=== PATIENT | female | born 1975 | race African-American/Black ===

== ENCOUNTER 2018-11-24 13:40 | Emergency (ER) | payer SELFPAY ==
[~2018-11-24] VITALS: Ht 185.4 cm; Wt 158.8 kg
[2018-11-24 13:51] VITALS: BP 164/97
--- NOTE | 2018-11-24 14:55 | PHYS DOC ---
Past Medical History Past Medical History: Migraines Past Surgical History: Other Additional Past Surgical Histo: throat Alcohol Use: None Drug Use: None Adult General Chief Complaint Chief Complaint: EARACHE/EAR PAIN [facility] HPI Patient is a 43 year old bilateral ear pain that began 2 days ago. Patient denies any fever coughing or congestion. Review of Systems Review of Systems Constitutional: Denies fever or chills [] Eyes: Denies change in visual acuity, redness, or eye pain [] HENT: Reports bilateral ear pain for 2 days. Denies nasal congestion or sore throat [] Respiratory: Denies cough or shortness of breath [] Cardiovascular: No additional information not addressed in HPI [] GI: Denies abdominal pain, nausea, vomiting, bloody stools or diarrhea [] : Denies dysuria or hematuria [] Musculoskeletal: Denies back pain or joint pain [] Integument: Denies rash or skin lesions [] Neurologic: Denies headache, focal weakness or sensory changes [] All other systems were reviewed and found to be within normal limits, except as documented in this note. Allergies Allergies Allergies Coded Allergies Type Severity Reaction Last Updated Verified hydrocodone Allergy Unknown headache 07/10/14 No Physical Exam Physical Exam Constitutional: Well developed, well nourished, no acute distress, non-toxic appearance. [] HENT: Normocephalic, atraumatic, bilateral external ears normal, oropharynx moist, no oral exudates, nose normal. [] Bilateral TM are mildly injected left worse than right with cloudy fluid on the left. Eyes: PERRLA, EOMI, conjunctiva normal, no discharge. [] Neck: Normal range of motion, no tenderness, supple, no stridor. [] Cardiovascular:Heart rate regular rhythm, no murmur [] Lungs & Thorax: Bilateral breath sounds clear to auscultation [] Abdomen: Bowel sounds normal, soft, no tenderness, no masses, no pulsatile masses. [] Skin: Warm, dry, no erythema, no rash. [] Back: No tenderness, no CVA tenderness. [] Extremities: No tenderness, no cyanosis, no clubbing, ROM intact, no edema. [] Neurologic: Alert and oriented X 3, normal motor function, normal sensory function, no focal deficits noted. [] Psychologic: Affect normal, judgement normal, mood normal. [] Current Patient Data Vital Signs Vital Signs Date Time Temp Pulse Resp B/P (MAP) Pulse Ox O2 Delivery O2 Flow Rate FiO2 11/24/18 13:51 98.8 84 16 164/97 (119) 95 Room Air 98.8 EKG EKG [] Radiology/Procedures Radiology/Procedures [] Course & Med Decision Making Course & Med Decision Making Pertinent Labs and Imaging studies reviewed. (See chart for details) Patient has bilateral otitis media. Discharged on amoxicillin. Tylenol Motrin for pain or fever. Follow-up with PCP in 1-2 weeks or ENT. Dragon Disclaimer Dragon Disclaimer This electronic medical record was generated, in whole or in part, using a voice recognition dictation system. Departure Departure Impression: Primary Impression: Otitis media Disposition: HOME, SELF-CARE Condition: STABLE Referrals: NO PCP (PCP) follow up with your doctor in 1-2 weeks Patient Instructions: Otitis Media, Adult, [id number] Additional Instructions: You have ear infection, you were treated with antibiotics, follow up with your primary care doctor in 1-2 weeks. Scripts Amoxicillin (AMOXICILLIN) 875 Mg Tablet 1 TAB PO BID, #20 TAB Prov: CLAUDIA MCCULLOUGH [employer] 11/24/18 Problem Qualifiers Primary Impression: Otitis media Otitis media type: other nonsuppurative Chronicity: acute Laterality: bilateral Recurrence: non-recurrent Qualified Codes: H65.193 - Other acute nonsuppurative otitis media, bilateral CLAUDIA MCCULLOUGH [employer] UND[employer]WRITER November 24, 2018 14:55
[2018-11-24] MEDS ORDERED: AMOX875T PO (15:12)
== END 2018-11-24 15:46 | disposition home or self-care (01) ==
LOC: ER 13:40
DX: H65.193 Other acute nonsuppurative otitis media, bilateral (principal); G43.909 Migraine, unspecified, not intractable, without status migrainosus; Z88.5 Allergy status to narcotic agent
CPT/HCPCS: 99283

== ENCOUNTER 2019-01-13 12:06 | Emergency (ER) | payer OTHER ==
[~2019-01-13] VITALS: Ht 185.4 cm; Wt 159.7 kg
[~2019-01-13 12:06] MED LIST: AMOX875T PO
[2019-01-13 12:32] VITALS: BP 179/97
[2019-01-13] MEDS ORDERED: KETOROLAC 60 MG/2 ML VIAL. IM ONE (12:45)
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
[2019-01-13] MEDS ORDERED: ACET-704 PO (14:11)
== END 2019-01-13 14:31 | disposition home or self-care (01) ==
LOC: ER 12:06
DX: S09.90XA Unspecified injury of head, initial encounter (principal); G43.909 Migraine, unspecified, not intractable, without status migrainosus; M47.812 Spondylosis without myelopathy or radiculopathy, cervical region; Z88.5 Allergy status to narcotic agent; W22.8XXA Striking against or struck by other objects, initial encounter; Y93.89 Activity, other specified; Y92.89 Other specified places as the place of occurrence of the external cause; Y99.0 Civilian activity done for income or pay
CPT/HCPCS: 70450; 72125; 96372; 99284; J1885

== ENCOUNTER 2019-06-10 03:59 | Emergency (ER) | payer SELFPAY ==
[~2019-06-10] VITALS: Ht 185.4 cm; Wt 165.6 kg
[~2019-06-10 03:59] MED LIST changes: +ACET-704 PO
[2019-06-10] MEDS ORDERED: ONDANSETRON PF 4 MG/2 ML VIAL. IVP ONE (04:30)
[2019-06-10] MEDS ORDERED: IV NORMAL SALINE 1000ML BAG 1,000 ML IV ONE (04:30)
[2019-06-10] MEDS ORDERED: ONDANSETRON PF 4 MG/2 ML VIAL. ONE (04:40)
[2019-06-10 04:48] LABS: BASO % 1 % (0-3); EOS # 0.1 x10^3/uL (0.0-0.7); EOS % 3 % (0-3); HEMATOCRIT 40.4 % (36.0-47.0); HEMOGLOBIN 13.9 g/dL (12.0-15.5); LYMPH # 1.4 x10^3/uL (1.0-4.8); LYMPH % 52 % (24-48); MEAN CORPUSCULAR HEMOGLOBIN 30 pg (25-35); MEAN CORPUSCULAR HGB CONC 34 g/dL (31-37); MEAN CORPUSCULAR VOLUME 87 fL (79-100); MONO # 0.2 x10^3/uL (0.0-1.1); MONO % 9 % (0-9); NEUT % 35 % (31-73); PLATELET COUNT 223 x10^3/uL (140-400); RED BLOOD COUNT 4.66 x10^6/uL (3.50-5.40); WHITE BLOOD COUNT 2.8 x10^3/uL (4.0-11.0)
--- NOTE | 2019-06-10 04:55 | PHYS DOC ---
Past Medical History Past Medical History: Migraines Past Surgical History: Other Additional Past Surgical Histo: throat Alcohol Use: None Drug Use: None Adult General Chief Complaint Chief Complaint: ABDOMINAL PAIN HPI HPI Patient is a 43 year old -[place] female presents acute onset diffuse abdominal pain with nausea while episode of emesis. Pain is rated moderate to severe and described as sharp pain is migratory. Symptoms began several hours prior to ED arrival after eating. No fevers chills, sweats. No diarrhea. No prior abdominal surgeries. Last menstrual period over a year ago. No other acute symptoms or complaints. [] Review of Systems Review of Systems Review symptoms as per history of present illness. All other review symptoms are negative. All other systems were reviewed and found to be within normal limits, except as documented in this note. Current Medications Current Medications Current Medications Medications (Trade) Dose Ordered Sig/Norah Start Time Stop Time Status Last Admin Dose Admin Info (CONTRAST GIVEN -- Rx MONITORING) 1 each PRN DAILY PRN 06/10/19 05:15 06/12/19 05:14 Iohexol (Omnipaque 300 Mg/ml) 75 ml 1X ONCE 06/10/19 05:15 06/10/19 05:16 DC 06/10/19 05:19 75 ML Morphine Sulfate (Morphine Sulfate) 4 mg 1X ONCE 06/10/19 05:00 06/10/19 05:01 DC 06/10/19 04:58 4 MG Ondansetron HCl (Zofran) 4 mg STK-MED ONCE 06/10/19 04:40 06/10/19 04:41 DC Sodium Chloride 1,000 ml @ 1,000 mls/hr 1X ONCE 06/10/19 04:30 06/10/19 05:29 DC 06/10/19 04:42 1,000 MLS/HR Allergies Allergies Allergies Coded Allergies Type Severity Reaction Last Updated Verified No Known Drug Allergies 06/10/19 No Physical Exam Physical Exam Constitutional: Moderate distress secondary pain. [] HENT: Normocephalic, atraumatic, bilateral external ears normal, oropharynx moist, nose normal. [] Eyes: PERRLA, EOMI, conjunctiva normal, no discharge. [] Neck: Normal range of motion, no tenderness, supple, no stridor. [] Cardiovascular:Heart rate regular rhythm, no murmur [] Lungs & Thorax: Bilateral breath sounds clear to auscultation [] Abdomen: Bowel sounds normal, soft, increased bowel sounds, periumbilical pain/tenderness, voluntary guarding.. [] Skin: Warm, dry, no erythema, no rash. [] Back: No tenderness, no CVA tenderness. [] Extremities: No tenderness, no edema. [] Neurologic: Alert and oriented X 3, normal motor function, normal sensory function, no focal deficits noted. [] Psychologic: Affect normal, judgement normal, mood normal. [] Current Patient Data Vital Signs Vital Signs Date Time Temp Pulse Resp B/P (MAP) Pulse Ox O2 Delivery O2 Flow Rate FiO2 06/10/19 05:29 16 94 Room Air 06/10/19 04:15 98.3 78 140/79 (99) 98.3 Lab Values Laboratory Tests Test 06/10/19 04:40 White Blood Count 2.8 x10^3/uL (4.0-11.0) L Red Blood Count 4.66 x10^6/uL (3.50-5.40) Hemoglobin 13.9 g/dL (12.0-15.5) Hematocrit 40.4 % (36.0-47.0) Mean Corpuscular Volume 87 fL (79-100) Mean Corpuscular Hemoglobin 30 pg (25-35) Mean Corpuscular Hemoglobin Concent 34 g/dL (31-37) Red Cell Distribution Width 14.0 % (11.5-14.5) Platelet Count 223 x10^3/uL (140-400) Neutrophils (%) (Auto) 35 % (31-73) Lymphocytes (%) (Auto) 52 % (24-48) H Monocytes (%) (Auto) 9 % (0-9) Eosinophils (%) (Auto) 3 % (0-3) Basophils (%) (Auto) 1 % (0-3) Neutrophils # (Auto) 1.0 x10^3/uL (1.8-7.7) L Lymphocytes # (Auto) 1.4 x10^3/uL (1.0-4.8) Monocytes # (Auto) 0.2 x10^3/uL (0.0-1.1) Eosinophils # (Auto) 0.1 x10^3/uL (0.0-0.7) Basophils # (Auto) 0.0 x10^3/uL (0.0-0.2) Sodium Level 140 mmol/L (136-145) Potassium Level 3.6 mmol/L (3.5-5.1) Chloride Level 104 mmol/L (98-107) Carbon Dioxide Level 27 mmol/L (21-32) Anion Gap 9 (6-14) Blood Urea Nitrogen 11 mg/dL (7-20) Creatinine 0.9 mg/dL (0.6-1.0) Estimated GFR (Cockcroft-Gault) 82.3 BUN/Creatinine Ratio 12 (6-20) Glucose Level 118 mg/dL (70-99) H Calcium Level 8.8 mg/dL (8.5-10.1) Total Bilirubin 0.3 mg/dL (0.2-1.0) Aspartate Amino Transferase (AST) 22 U/L (15-37) Alanine Aminotransferase (ALT) 20 U/L (14-59) Alkaline Phosphatase 79 U/L (46-116) Total Protein 8.1 g/dL (6.4-8.2) Albumin 3.4 g/dL (3.4-5.0) Albumin/Globulin Ratio 0.7 (1.0-1.7) L Serum Test, Qualitative Negative (NEG) Laboratory Tests 06/10/19 04:40 Laboratory Tests 06/10/19 04:40 EKG EKG [] Radiology/Procedures Radiology/Procedures [CT abdomen pelvis: Possible colitis per radiology report.] Course & Med Decision Making Course & Med Decision Making Pertinent Labs and Imaging studies reviewed. (See chart for details) [Imaging reviewed. Symptoms improved with treatment. CT abdomen pelvis reviewed. Findings concerning for colitis. Antibiotics prescribed. We'll continue supportive treatment with PCP follow-up. Return precautions reviewed. Patient verbalizes understanding agreement discharge instructions prior to departure.] Dragon Disclaimer Dragon Disclaimer This electronic medical record was generated, in whole or in part, using a voice recognition dictation system. Departure Departure Impression: Primary Impression: Abdominal pain Additional Impression: Acute colitis Disposition: HOME, SELF-CARE Condition: STABLE Referrals: NO PCP (PCP) Patient Instructions: Abdominal Pain, Colitis Additional Instructions: Please go home and rest. Take the prescribed medication as instructed and follow-up with your PCP. Return to the ED if new or worsening symptoms. Scripts Hydrocodone Bit/Acetaminophen (HYDROCODONE-APAP 5-300) 1 Each Tablet 1 TAB PO PRN BID PRN for pain MDD 2 Tablet(s) for 2 Days, #8 TAB 0 Refills Prov: NING HOOPER DO 06/10/19 Ondansetron Hcl (ZOFRAN) 4 Mg Tablet 1 TAB PO Q6HRS, #10 TAB 0 Refills Prov: NING HOOPER DO 06/10/19 Sulfamethoxazole/Trimethoprim (BACTRIM DS TABLET) 1 Each Tablet 1 TAB PO BID for 10 Days, #20 TAB 0 Refills Prov: NING HOOPER DO 06/10/19 Problem Qualifiers NING HOOPER DO Jun 10, 2019 04:55
[2019-06-10 04:56] LABS: CALCIUM 8.8 mg/dL (8.5-10.1); CREATININE 0.9 mg/dL (0.6-1.0); GFR 82.3; POTASSIUM 3.6 mmol/L (3.5-5.1)
[2019-06-10] MEDS ORDERED: MORPHINE SULFATE 4 MG/ML VIAL. IV ONE (05:00)
[2019-06-10 05:01] LABS: PREG TEST PT QUAL NEGATIVE (NEG)
[2019-06-10 05:02] LABS: ALBUMIN 3.4 g/dL (3.4-5.0); ALBUMIN/GLOBULIN RATIO 0.7 (1.0-1.7); TOTAL BILIRUBIN 0.3 mg/dL (0.2-1.0); TOTAL PROTEIN 8.1 g/dL (6.4-8.2)
[2019-06-10] MEDS ORDERED: CONTRAST GIVEN. MC PRN (05:15)
[2019-06-10] MEDS ORDERED: IOHEXOL 300 MG/ML 100ML VIAL. IV ONE (05:15)
[2019-06-10 05:53] LABS: BILIRUBIN,URINE NEGATIVE (NEG); COLOR,URINE YELLOW; NITRITE,URINE POSITIVE (NEG); PH,URINE 6.5; PROTEIN,URINE NEGATIVE (NEG-TRACE); UROBILINOGEN,URINE 0.2 mg/dL (0.2 mg/dL)
--- NOTE | 2019-06-10 05:59 | RAD ---
EXAM: CT Abdomen and Pelvis with IV contrast CLINICAL HISTORY: Abdominal pain, vomiting. COMPARISON: none TECHNIQUE: Helical CT of the abdomen and pelvis was performed following the administration of intravenous contrast. Axial, coronal and sagittal reformatted images were generated. PQRS compliance statement - One or more of the following individualized dose reduction techniques were utilized for this study: 1. Automated exposure control 2. Adjustment of the mA and/or kV according to patient size 3. Use of iterative reconstruction technique FINDINGS: Lower chest: Linear and subpleural opacities in the lower lobes likely scarring/atelectasis. Small hiatal hernia. Abdomen and Pelvis: Subcentimeter hypodense right hepatic lobe lesion is too small to accurately characterize. Gallbladder is normal. No biliary ductal dilatation. Pancreas is normal. Spleen is unremarkable. Adrenal glands are normal in appearance. Symmetric nephrograms. No focal renal lesion. No hydronephrosis. No hydroureter. Bladder diverticulum is seen on the left. Appendix is normal. Moderate colonic stool content is seen. No evidence for bowel obstruction. Mild infiltration about the right colon is nonspecific but may be seen with colitis. A few colonic diverticula are seen in the sigmoid colon without evidence for acute diverticulitis. Trace free pelvic fluid along the right lateral conal fascia. No abdominal or pelvic lymphadenopathy. Bones: Degenerative changes of spine are seen posterior L4-5. IMPRESSION: 1. Appendix is normal. 2. Infiltration about the right colon may be seen with colitis, possibly infectious or inflammatory. Electronically signed by: Marco Vargas MD (06/10/2019 5:55 AM) [id number]
[2019-06-10] MEDS ORDERED: ONDA4TAB7 PO (06:07)
[2019-06-10] MEDS ORDERED: HYDR-2163 PO (06:07)
[2019-06-10] MEDS ORDERED: SULF1TAB24 PO (06:07)
[2019-06-10 06:08] LABS: BACTERIA,URINE MANY /HPF (0-FEW); RBC,URINE 0 /HPF (0-2)
[2019-06-10 06:09] LABS: CLARITY,URINE CLOUDY
[2019-06-10 06:14] VITALS: BP 131/82
== END 2019-06-10 06:23 | disposition home or self-care (01) ==
LOC: ER 03:59
DX: K52.9 Noninfective gastroenteritis and colitis, unspecified (principal); G43.909 Migraine, unspecified, not intractable, without status migrainosus
CPT/HCPCS: 36415; 74177; 80053; 81001; 84703; 85025; 87086; 96361; 96374; 96375; 99285; J2270; J2405; J7030; Q9967; 87186

== ENCOUNTER 2021-08-30 11:26 | Emergency (ER) | payer OTHER ==
[~2021-08-30] VITALS: Ht 185.4 cm; Wt 181.8 kg
[~2021-08-30 11:26] MED LIST changes: +ACET325T9 PO; +AMOX1TAB58 PO; +DOCU-148 PO; +HYDR-3068 PO; +ONDA4TAB7 PO; +SULF1TAB24 PO
[2021-08-30 12:03] VITALS: BP 145/85
[2021-08-30] MEDS ORDERED: NAPROXEN 500 MG TABLET PO ONE (12:30)
--- NOTE | 2021-08-30 12:57 | RAD ---
EXAM: XR SHOULDER_LEFT 2+ VIEWS, XR ELBOW COMPLETE_LEFT 3+VIEWS 08/30/2021 12:33 PM CLINICAL INDICATION: Fall with pain COMPARISON: None FINDINGS: Left shoulder: 3 views were obtained. No acute fracture. Alignment is normal. The glenohumeral and ac romioclavicular joints are maintained. Subacromial space is preserved. Left elbow: Suboptimal positioning on oblique view No acute fracture. Alignment is normal. Joint spac es are maintained. No obvious joint effusion or soft tissue abnormality. IMPRESSION: No acute osseous abnormality of the left shoulder or left elbow. Electronically signed by: Sandra Mitchell MD (08/30/2021 12:55 PM) [id number]
[2021-08-30] MEDS ORDERED: ORPH100T PO (13:07)
[2021-08-30] MEDS ORDERED: NAPR-514 PO (13:07)
--- NOTE | 2021-08-30 13:07 | PHYS DOC ---
Past Medical History Past Medical History: Hypertension, Migraines, Other Additional Past Medical Histor: colitis, morbid obesity (MARAH RAMACHANDRAN) Past Surgical History: Other Additional Past Surgical Histo: throat (MARAH RAMACHANDRAN) Smoking Status: Never Smoker Alcohol Use: None Drug Use: None (MARAH RAMACHANDRAN) General Adult EDM: Chief Complaint: MECHANICAL FALL HPI: HPI: Patient is a 45 year old female who presents with left upper extremity pain. Patient states that she was taking out trash walking across an icy parking lot, when she lost her footing and fell backward onto her left shoulder. Patient reports associated slight headache. Patient denies loss of consciousness, nausea/vomiting, focal weakness. (MARAH RAMACHANDRAN) Review of Systems: Review of Systems: ROS negative or noncontributory except as mentioned in HPI. (MARAH RAMACHANDRAN) Heart Score: C/O Chest Pain: No (MARAH RAMACHANDRAN) Current Medications: Current Medications Medications (Trade) Dose Ordered Sig/Norah Start Time Stop Time Status Last Admin Dose Admin Naproxen (Naprosyn) 500 mg 1X ONCE 08/30/21 12:30 08/30/21 12:31 DC 08/30/21 12:34 500 MG (MARAH RAMACHANDRAN) Allergies: Allergies: Allergies Coded Allergies Type Severity Reaction Last Updated Verified No Known Drug Allergies 06/10/19 No (MARAH RAMACHANDRAN) Physical Exam: PE: Constitutional: Well developed, well nourished, no acute distress, non-toxic appearance. HENT: Normocephalic, atraumatic, bilateral external ears normal, oropharynx moist, no oral exudates, nose normal. Eyes: PERRLA, EOMI, conjunctiva normal, no discharge. Neck: Normal range of motion, no tenderness, no stridor. Skin: Warm, dry, no erythema, no rash. Back: No tenderness, no CVA tenderness. Extremities: Left shoulder posterior tenderness extending to periscapular region, active range of motion limited secondary to pain. Extremities otherwise no tenderness, no cyanosis, no clubbing, ROM intact, no edema, distal pulses 2+ and symmetrical. Neurologic: Alert and oriented x4, steady and symmetrical upright gait, no focal deficits noted. (MARAH RAMACHANDRAN) Current Patient Data: Vital Signs: Vital Signs Date Time Temp Pulse Resp B/P (MAP) Pulse Ox O2 Delivery O2 Flow Rate FiO2 08/30/21 12:03 98.0 80 20 145/85 (105) 96 Room Air 98.0 (MARAH RAMACHANDRAN) Radiology/Procedures: Radiology/Procedures: PROCEDURE: SHOULDER 2+V LEFT EXAM: XR SHOULDER_LEFT 2+ VIEWS, XR ELBOW COMPLETE_LEFT 3+VIEWS 08/30/2021 12:33 PM CLINICAL INDICATION: Fall with pain COMPARISON: None FINDINGS: Left shoulder: 3 views were obtained. No acute fracture. Alignment is normal. T he glenohumeral and acromioclavicular joints are maintained. Subacromial space is preserved. Left elbow: Suboptimal positioning on oblique view No acute fracture. Alignment is normal. Joint spaces are maintained. No obvious joint effusion or soft tissue abnormality. IMPRESSION: No acute osseous abnormality of the left shoulder or left elbow. Electronically signed by: Sandra Mitchell MD (08/30/2021 12:55 PM) [id number] (MARAH RAMACHANDRAN) Course & Med Decision Making: Course & Med Decision Making Pertinent Labs and Imaging studies reviewed. (See chart for details) (MARAH RAMACHANDRAN) Dragon Disclaimer: Dragon Disclaimer: This electronic medical record was generated, in whole or in part, using a voice recognition dictation system. (MARAH RAMACHANDRAN) Departure Departure Impression: Primary Impression: Contusion, shoulder and upper arm, multiple sites Qualified Codes: S40.012A - Contusion of left shoulder, initial encounter; S40.022A - Contusion of left upper arm, initial encounter Disposition: HOME / SELF CARE / HOMELESS Condition: STABLE Referrals: NO PCP (PCP) INGE LOZA MD Patient Instructions: Shoulder Pain, [id number], Shoulder, Range of Motion Exercises Additional Instructions: EMERGENCY DEPARTMENT GENERAL DISCHARGE INSTRUCTIONS Thank you for coming to [facility] Emergency Department (ED) today and trusting us with you care. We trust that you had a positive experience in our Emergency Department. If you wish to speak to the department management, you may call the director at . YOUR FOLLOW UP INSTRUCTIONS ARE FOLLOWS: 1. Follow up with your primary care doctor. If you do not have a primary doctor, please ask for a resource list of physicians or clinics that may be able to assist you with follow up care. 2. The emergency provider has interpreted your imaging studies, if any were ordered. The radiology pharmacovigilance specialist also reviewed them. If there is a change in the findings, you will be notified in 48 hours when at all possible. 3. If a lab test or culture has been done, your results will be reviewed and you will be notified if you need a change in treatment. 4. Follow instructions verbalized to you and refer to the printouts if needed. ADDITIONAL INSTRUCTIONS AND INFORMATION: 1. Your care today has been supervised by a physician who is specially trained in emergency care. Many problems require more than one evaluation for a complete diagnosis and treatment. We recommend that you schedule your follow up appointment as recommended to ensure complete treatment of you illness or injury. If you are unable to obtain follow up care and continue to have a problem, or if your condition worsens, we recommend that you return to the ED. 2. We are not able to safely determine your condition over the phone nor are we able to give sound medical advice over the phone. For these safety reasons, if you call for medical advice we will ask you to come to the ED for further evaluation. 3. If you have any questions regarding these discharge instructions please call the ED at . SAFETY INFORMATION: In the interest of safety, wellness, and injury prevention; we encourage you to wear your seat belt, if you smoke; quite smoking, and we encourage family to use a protective helmet for bicycling and other sporting events that present an increased risk for head injury. IF YOUR SYMPTOMS WORSEN OR NEW SYMPTOMS DEVELOP, OR YOU HAVE CONCERNS ABOUT YOUR CONDITION; OR IF YOUR CONDITION WORSENS WHILE YOU ARE WAITING FOR YOUR FOLLOW UP APPOINTMENT; EITHER CONTACT YOUR PRIMARY CARE DOCTOR, THE PHYSICIAN WHOSE NAME AND NUMBER YOU WERE GIVEN, OR RETURN TO THE ED IMMEDIATELY. Scripts Naproxen (NAPROXEN) 500 Mg Tablet 1 TAB PO Q12HR for pain, #20 TAB 0 Refills Prov: MARAH RAMACHANDRAN 08/30/21 Orphenadrine Citrate (ORPHENADRINE CITRATE) 100 Mg Tablet.er 1 TAB PO PRN Q12HR PRN for PAIN, #10 TAB Prov: MARAH RAMACHANDRAN 08/30/21 Attending Signature Attending Signature I have reviewed the PA/ROLLED HAM LACER's note and plan of care. I was available for consultation as needed during the patient's visit in the emergency department. I agree with the clinical impression, plan, and disposition. (MARY BLAS DO) MARAH RAMACHANDRAN Aug 30, 2021 13:07 MARY BLAS DO Aug 31, 2021 09:02
== END 2021-08-30 13:17 | disposition home or self-care (01) ==
LOC: ER 11:26
DX: S40.012A Contusion of left shoulder, initial encounter (principal); S40.022A Contusion of left upper arm, initial encounter; I10 Essential (primary) hypertension; G43.909 Migraine, unspecified, not intractable, without status migrainosus; E66.01 Morbid (severe) obesity due to excess calories; Z68.43 Body mass index [BMI] 50.0-59.9, adult; W18.39XA Other fall on same level, initial encounter; Y93.01 Activity, walking, marching and hiking; Y92.89 Other specified places as the place of occurrence of the external cause; Y99.8 Other external cause status
CPT/HCPCS: 73030; 73080; 99284